=== PATIENT | female | born 1965 ===

== ENCOUNTER 2018-03-01 09:59 | Day surgery (SDC) | payer MEDICAID ==
[2017-10-26 08:45] VITALS: BMI 22.6
[2018-03-01] MEDS ORDERED: Lactated Ringer's 500 ML IV ONE (10:42)
[2018-03-01] MEDS ORDERED: Propofol 10 mg/ml Inj (20 ML) ONE (11:31)
[2018-03-01 11:50] VITALS: TEMP 97
[2018-03-01 12:04] VITALS: BP 110/60; PULSE 80; RESP 19; O2SAT 100
== END 2018-03-01 12:28 | disposition home or self-care (01) ==
LOC: H.ENDO 09:59
PROVIDERS: ATTEND Internal Medicine Gastroenterology
DX: Z12.11 Encounter for screening for malignant neoplasm of colon (principal); K64.0 First degree hemorrhoids; E11.9 Type 2 diabetes mellitus without complications; E78.5 Hyperlipidemia, unspecified
CPT/HCPCS: 45378; 82948; J2001; J2704; J7120

== ENCOUNTER 2018-09-28 11:23 | Emergency (ER) | payer SELFPAY ==
[2018-09-28 11:23] VITALS: BMI 22.6
[2018-09-28 11:42] VITALS: TEMP 98.5
--- NOTE | 2018-09-28 12:27 | ED PDOC ---
HPI: Chest Pain Time Seen by Provider: 09/28/18 12:09 Chief Complaint (Nursing): Chest Pain History Per: Patient Onset/Duration Of Symptoms: Days (2) Current Symptoms Are (Timing): Still Present Severity: Moderate Quality: Aching Exacerbating Factors: Movement, Deep Breathing Additional Complaint(s): Left axillary and left back pain since yesterday. Worse on inspiration and movement. Had numbness left arm yesterday. Denies SOB. No focal weakness. Past Medical History Vital Signs: Last Vital Signs Temp 98.5 F 09/28/18 11:38 Pulse 94 H 09/28/18 11:38 Resp 18 09/28/18 11:38 BP 158/82 H 09/28/18 11:38 Pulse Ox 100 09/28/18 11:38 - Medical History PMH: Arthritis, Diabetes, HTN, Hypercholesterolemia Denies: Chronic Kidney Disease - Family History Family History: States: Unknown Family Hx - Home Medications Home Medications: Ambulatory Orders Medication Instructions Recorded Atorvastatin [Lipitor] 40 mg PO DAILY #30 tab 10/23/14 Losartan [Cozaar] 25 mg PO DAILY 03/01/18 metFORMIN [glucOPHAGE] 1,000 mg PO BID 03/01/18 Naproxen [Naprosyn] 500 mg PO Q12H #20 tab 09/28/18 - Allergies Allergies/Adverse Reactions: Allergies Allergy/AdvReac Type Severity Reaction Status Date / Time No Known Allergies Allergy Verified 09/28/18 11:38 Review of Systems ROS Statement: Except As Marked, All Systems Reviewed And Found Negative Cardiovascular: Positive for: Chest Pain Respiratory: Positive for: Pleuritic Pain Physical Exam - Reviewed Nursing Documentation Reviewed: Yes Vital Signs Reviewed: Yes - Physical Exam Appears: Positive for: Non-toxic, No Acute Distress Head Exam: Positive for: ATRAUMATIC, NORMAL INSPECTION, NORMOCEPHALIC Skin: Positive for: Normal Color, Warm, DRY Eye Exam: Positive for: EOMI, Normal appearance, PERRL ENT: Positive for: Normal ENT Inspection Neck: Positive for: Normal, Painless ROM Cardiovascular/Chest: Positive for: Regular Rate, Rhythm. Negative for: Chest Non Tender (Tenderness to palpation left lateral and left post chest) Respiratory: Positive for: CNT, Normal Breath Sounds Gastrointestinal/Abdominal: Positive for: Normal Exam, Soft Back: Positive for: Normal Inspection Extremity: Positive for: Normal ROM Neurologic/Psych: Positive for: Alert, Oriented - Laboratory Results Result Diagrams: 09/28/18 13:10 09/28/18 13:10 - ECG O2 Sat by Pulse Oximetry: 100 Disposition - Clinical Impression Clinical Impression: Musculoskeletal pain - Patient ED Disposition Is Patient to be Admitted: No Counseled Patient/Family Regarding: Studies Performed, Diagnosis, Need For Followup, Rx Given - Disposition Referrals: [facility] [Outside] Disposition: Routine/Home Disposition Time: 13:53 Condition: FAIR Prescriptions: Naproxen [Naprosyn] 500 mg PO Q12H #20 tab Instructions: Costochondritis Forms: [employer] (Azeri)
[2018-09-28 13:16] LABS: BASO % 0.4 % (0.0-2.0); EOS # 0.1 K/uL (0.0-0.7); EOS % 0.8 % (0.0-4.0); HEMOGLOBIN 12.9 g/dL (12.0-16.0); LYMPH # 2.1 K/uL (1.0-4.3); LYMPH % 21.4 % (20.0-40.0); MEAN CELL VOLUME 89.1 fl (81.0-99.0); MEAN CORPUSCULAR HEMOGLOBIN 29.6 pg (27.0-31.0); MEAN CORPUSCULAR HGB CONC 33.2 g/dL (33.0-37.0); MEAN PLATELET VOLUME 8.4 fl (7.2-11.7); MONO # 0.7 K/uL (0.0-0.8); MONO % 7.6 % (0.0-10.0); NEUT # 6.7 K/uL (1.8-7.0); NEUT % 69.8 % (50.0-75.0); RBC 4.37 Mil/uL (3.80-5.20); RED CELL DISTRIBUTION WIDTH 15.5 % (11.5-14.5); WHITE BLOOD COUNT 9.6 K/uL (4.8-10.8)
[2018-09-28 13:30] LABS: ALB/GLOB RATIO 1.1 (1.0-2.1); ALT/SGPT 72 U/L (9-52); AST/SGOT 51 U/L (14-36); BLOOD UREA NITROGEN 12 mg/dl (7-17); CALCIUM 10.3 mg/dL (8.4-10.2); GFR NON-AFRICAN AMERICAN > 60
[2018-09-28 14:10] VITALS: BP 132/78; PULSE 85; RESP 12; O2SAT 99
--- NOTE | 2018-09-28 16:22 | RAD ---
Date of service: 09/28/2018 HISTORY: Chest pain COMPARISON: 10/22/2014 TECHNIQUE: Chest PA and lateral FINDINGS: LUNGS: No active pulmonary disease. PLEURA: No significant pleural effusion identified. No pneumothorax apparent. CARDIOVASCULAR: No aortic atherosclerotic calcification present. Normal cardiac size. No pulmonary vascular congestion. OSSEOUS STRUCTURES: No significant abnormalities. VISUALIZED UPPER ABDOMEN: Normal. OTHER FINDINGS: None. IMPRESSION: No active disease. No significant interval change compared to the prior examination(s).
== END 2018-09-28 14:06 | disposition home or self-care (01) ==
LOC: H.ER 11:23
DX: M79.18 Myalgia, other site (principal); E11.9 Type 2 diabetes mellitus without complications; E78.00 Pure hypercholesterolemia, unspecified; I10 Essential (primary) hypertension